=== PATIENT | male | born 1980 | race Caucasian/White ===

== ENCOUNTER 2016-12-31 21:31 | Emergency (ER) | payer OTHER ==
[~2016-12-31] VITALS: Ht 177.8 cm; Wt 105.1 kg
[~2016-12-31 21:31] MED LIST: METH4PAK4 PO; TRAM-10 PO
[2016-12-31 21:40] VITALS: TEMP 36.6; Ht 177.8 cm; Wt 105.1 kg
[2016-12-31] MEDS ORDERED: RABIES VACCINE (IMOVAX) HUMAN DIPL CELL 2.5 INTER.UNIT/ML SYR IM. ONE (22:00)
[2016-12-31] MEDS ORDERED: RABIES IMMUNE GLOBULIN (HUMAN) 150 INTER.UNIT/ML 2 ML VIAL IM. ONE (22:00)
--- NOTE | 2016-12-31 22:16 | EMERGENCY ROOM VISIT NOTE ---
ED Visit Note First contact with patient: 21:36 CHIEF COMPLAINT: Bat in house HISTORY OF PRESENT ILLNESS: This 36-year-old patient presents to the emergency department requesting rabies prophylaxis for bat found in house. There is concern for rabies exposure. Patient denies being bit by the bat or any other medical complaints. REVIEW OF SYSTEMS: A 6 system review of systems was completed with positives and pertinent negatives listed in the HPI. ALLERGIES: none MEDICATIONS: none PMH: none. SOCIAL HISTORY: No drug use. PHYSICAL EXAM: Vital Signs: Reviewed Nurse's notes, vital signs stable. GENERAL : Pleasant male, in no acute distress, well-developed, well-nourished. HEAD: Atraumatic, without temporal or scalp tenderness. EYES: PERRLA, EOMI, no discharge or injection. SKIN: No bite santos appreciated. Capillary refill less than 2 seconds. NEUROLOGICAL: Alert and oriented to person place and time. Normal sensation to light and sharp touch. MUSCULOSKELETAL: There is erythema, edema or atrophy to extremities EMERGENCY DEPARTMENT COURSE: I examined the patient. The patient was given RIG 20 Units/kg. . The patient was given rabies vaccine IM. The patient was observed for 20 minutes with no reaction. The patient was discharged home in stable condition. DIAGNOSIS: Rabies prophylaxis DISCHARGE INSTRUCTIONS: Today is day 0. Return to the ER on days 3, 7, and 14 for subsequent vaccinations. Return sooner or follow up with your family doctor for signs of infection (increased redness, discharge, fever) or for complications with the vaccine series. Current/Historical Medications Scheduled PRN Calcium Carbonate (Tums), 500 MG PO UD PRN for Indigestion Allergies Coded Allergies: No Known Allergies (Unverified , 12/31/16) Vital Signs Date Time Temp Pulse Resp B/P (MAP) Pulse Ox O2 Delivery O2 Flow Rate FiO2 12/31/16 21:40 36.6 97 18 146/82 96 Room Air Departure Information Referrals [employer], [place] (PCP) [facility]
[2016-12-31 23:20] VITALS: BP 151/86; PULSE 92; O2SAT 99
== END 2016-12-31 23:20 | disposition home or self-care (01) ==
LOC: C.EDB 21:32 → C.EDD 23:20
DX: Z23 Encounter for immunization (principal); Z20.3 Contact with and (suspected) exposure to rabies

== ENCOUNTER 2017-01-03 20:33 | Emergency (ER) | payer OTHER ==
[~2017-01-03] VITALS: Ht 177.8 cm; Wt 105.3 kg
[2017-01-03 20:36] VITALS: TEMP 36.7; Ht 177.8 cm; Wt 105.3 kg
--- NOTE | 2017-01-03 21:20 | EMERGENCY ROOM VISIT NOTE ---
ED Visit Note First contact with patient: 21:08 CHIEF COMPLAINT: Rabies prophylaxis, 2nd vaccine HISTORY OF PRESENT ILLNESS: This 36-year-old male patient presents to the emergency department, with his family, for their second rabies shot. The patient noticed a bat in the health on December 31. He was seen here that night for his first rabies vaccination. The patient has not had any complications from the previous injections. They deny any other complaints. REVIEW OF SYSTEMS: A 6 system review of systems was completed with positives and pertinent negatives listed in the HPI. ALLERGIES: None MEDICATIONS: Tums PMH: Unchanged from previous visit. PHYSICAL EXAM: Vital Signs: Reviewed Nurse's notes, vital signs stable. GENERAL : This is a 36-year-old male, in no acute distress, well-developed, well- nourished. HEAD: Atraumatic, without temporal or scalp tenderness. EYES: PERRLA, EOMI, no discharge or injection. SKIN: Normal. NEUROLOGICAL: Alert and cooperative. Sensory and motor functions grossly intact. EMERGENCY DEPARTMENT COURSE: I examined the patient. The patient was given Imovax 1ml IM. The patient was observed for 20 minutes with no reaction. The patient was discharged home in stable condition. DIAGNOSIS: Rabies prophylaxis DISCHARGE INSTRUCTIONS: Continue vaccination schedule as directed. Return for any complications. Current/Historical Medications Scheduled PRN Calcium Carbonate (Tums), 500 MG PO UD PRN for Indigestion Allergies Coded Allergies: No Known Allergies (Unverified , 12/31/16) Vital Signs Date Time Temp Pulse Resp B/P (MAP) Pulse Ox O2 Delivery O2 Flow Rate FiO2 01/03/17 22:06 76 18 134/76 100 01/03/17 20:36 36.7 102 18 146/80 97 Room Air Medications Administered Medications (Trade) Dose Ordered Sig/Suman Route Start Time Stop Time Status Last Admin Dose Admin Rabies Vaccine Human Diploid Cell (Imovax Rabies) 2.5 interunit ONCE ONCE IM. 01/03/17 21:30 01/03/17 21:31 DC 01/03/17 22:05 2.5 INTERUNIT Departure Information Impression Primary Impression: Rabies, need for prophylactic vaccination against Dispostion Home / Self-Care Condition GOOD Referrals Skinny Carlin M.D. (PCP) Patient Instructions My [facility] Additional Instructions Continue vaccination schedule as directed. Return on day 7 (01/07/17) and 14 (01/14/17) Return for any complications.
[2017-01-03] MEDS ORDERED: RABIES VACCINE (IMOVAX) HUMAN DIPL CELL 2.5 INTER.UNIT/ML SYR IM. ONE (21:30)
[2017-01-03] MEDS ORDERED: CALC500C3 PO (22:01)
[2017-01-03 22:06] VITALS: BP 134/76; PULSE 76; O2SAT 100
== END 2017-01-03 22:06 | disposition home or self-care (01) ==
LOC: C.EDB 20:34 → C.EDD 22:06
DX: Z23 Encounter for immunization (principal); Z20.3 Contact with and (suspected) exposure to rabies

== ENCOUNTER 2017-01-07 18:41 | Emergency (ER) | payer OTHER ==
[~2017-01-07] VITALS: Ht 177.8 cm; Wt 105.1 kg
[~2017-01-07 18:41] MED LIST changes: +CALC500C3 PO; -METH4PAK4 PO; -TRAM-10 PO
[2017-01-07 18:56] VITALS: BP 143/87; PULSE 103; TEMP 36.8; O2SAT 95; Ht 177.8 cm; Wt 105.1 kg
--- NOTE | 2017-01-07 19:16 | EMERGENCY ROOM VISIT NOTE ---
ED Visit Note First contact with patient: 19:05 CHIEF COMPLAINT: Rabies prophylaxis HISTORY OF PRESENT ILLNESS: This 36-year-old male patient presents to the emergency department for their third rabies shot. The patient has not had any complications from the previous injections. They deny any other complaints. REVIEW OF SYSTEMS: A 6 system review of systems was completed with positives and pertinent negatives listed in the HPI. ALLERGIES: See chart MEDICATIONS: See chart PMH: Unchanged from previous visit. PHYSICAL EXAM: Vital Signs: Reviewed Nurse's notes, vital signs stable. GENERAL : Pleasant and cooperative, in no acute distress, well-developed, well- nourished. HEAD: Atraumatic, without temporal or scalp tenderness. EYES: PERRLA, EOMI, no discharge or injection. SKIN: Normal. NEUROLOGICAL: Alert and cooperative. Sensory and motor functions grossly intact. EMERGENCY DEPARTMENT COURSE: I examined the patient. The patient was given Imovax 1ml IM. The patient was observed for 20 minutes with no reaction. The patient was discharged home in stable condition. Current/Historical Medications Scheduled PRN Calcium Carbonate (Tums), 500 MG PO UD PRN for Indigestion Allergies Coded Allergies: No Known Allergies (Unverified , 12/31/16) Vital Signs Date Time Temp Pulse Resp B/P (MAP) Pulse Ox O2 Delivery O2 Flow Rate FiO2 01/07/17 18:56 36.8 103 18 143/87 95 Room Air Medications Administered Medications (Trade) Dose Ordered Sig/Suman Route Start Time Stop Time Status Last Admin Dose Admin Rabies Vaccine Human Diploid Cell (Imovax Rabies) 2.5 interunit ONCE ONCE IM. 01/07/17 19:30 01/07/17 19:31 DC 01/07/17 19:36 2.5 INTERUNIT Departure Information Impression Primary Impression: Encounter for repeat administration of rabies vaccination Dispostion Home / Self-Care Condition GOOD Referrals Skinny Carlin M.D. (PCP) Patient Instructions My [facility] Additional Instructions Continue vaccination schedule as directed. Your next visit should be in one week on Saturday, 01/14. Return for any complications.
[2017-01-07] MEDS ORDERED: RABIES VACCINE (IMOVAX) HUMAN DIPL CELL 2.5 INTER.UNIT/ML SYR IM. ONE (19:30)
== END 2017-01-07 20:07 | disposition home or self-care (01) ==
LOC: C.EDB 18:41 → C.EDD 20:07
DX: Z23 Encounter for immunization (principal); Z20.3 Contact with and (suspected) exposure to rabies

== ENCOUNTER 2017-01-14 18:14 | Emergency (ER) | payer OTHER ==
[~2017-01-14] VITALS: Ht 177.8 cm; Wt 105.6 kg
[2017-01-14 18:47] VITALS: TEMP 36.6; Ht 177.8 cm; Wt 105.6 kg
[2017-01-14] MEDS ORDERED: RABIES VACCINE (IMOVAX) HUMAN DIPL CELL 2.5 INTER.UNIT/ML SYR IM. ONE (19:00)
--- NOTE | 2017-01-14 19:06 | EMERGENCY ROOM VISIT NOTE ---
History First contact with patient: 18:54 Chief Complaint: RABIES VACCINE REPEAT VISIT Stated Complaint: LAST RABIES History of Present Illness The patient is a 36 year old male who presents to the Emergency Room for a fourth and final rabies immunization after being exposed to a bat in the home while sleeping. The patient has had no adverse reactions to previous injections. Review of Systems 6 system review was performed and was negative except for pertinent positives and negatives as indicated in history of present illness Past Medical/Surgical History Well documented on initial visit Social History Smoking Status: Never Smoker Marital Status: Housing Status: lives with family Occupation Status: employed Current/Historical Medications Scheduled PRN Calcium Carbonate (Tums), 500 MG PO UD PRN for Indigestion Physical Exam Vital Signs Date Time Temp Pulse Resp B/P (MAP) Pulse Ox O2 Delivery O2 Flow Rate FiO2 01/14/17 18:47 36.6 101 20 141/87 95 Room Air Physical Exam CONSTITUTIONAL: Healthy and well nourished. HEENT: Normocephalic, atraumatic. No scleral icterus. INTEGUMENTARY: No rash or other significant dermatologic conditions noted. NEUROLOGIC: No focal neurologic deficits noted. Medical Decision & Procedures ED Course Patient history and physical exam were performed. Vital signs were reviewed and were normal. The patient was administered Imovax without adverse reaction. The patient was advised that if there is any potential rabies exposure in the future, the healthcare provider should be advised that the patient has already undergone this rabies immunization series. The patient was happy with plan of care, and denied any pain at the time of discharge. Medical Decision Blood Pressure Screening Patient's blood pressure: Normal blood pressure Impression Primary Impression: Need for prophylactic vaccination against rabies Departure Information Dispostion Home / Self-Care Forms HOME CARE DOCUMENTATION FORM, IMPORTANT VISIT INFORMATION Patient Instructions My [facility] Additional Instructions If you have any potential rabies exposure in the future, advise your healthcare provider that you have already undergone this immunization series.
[2017-01-14 20:01] VITALS: BP 137/88; PULSE 94; O2SAT 94
== END 2017-01-14 20:02 | disposition home or self-care (01) ==
LOC: C.EDB 18:15 → C.EDD 20:02
DX: Z20.3 Contact with and (suspected) exposure to rabies (principal); Z23 Encounter for immunization